=== PATIENT | male | born 1970 | race Caucasian/White ===

== ENCOUNTER 2017-01-06 11:38 | Emergency (ER) ==
[2017-01-06 12:22] LABS: MANUAL DIFF NEEDED? NO; URINE CULTURE NEEDED? NO; URINE MICRO REVIEW NEEDED? NO; URINE SOURCE CLEAN CATCH
[2017-01-06 12:29] LABS: BASO% 0.4 % (0.0-0.8); EOS# 0.64 X1000 (0.0-0.7); EOS% 6.2 % (0.0-10.0); HEMATOCRIT 41.7 % (42.0-52.0); HEMOGLOBIN 14.6 g/dL (14.0-18.0); IMM GRAN# 0.05 X1000 (0.0-0.04); IMM GRAN% 0.5 % (0.0-0.5); LYMPH# 3.15 X1000 (1.2-3.4); LYMPH% 30.7 % (20.5-51.1); MCH 32.7 PG (27-31); MCV 93.3 FL (81-99); MONO# 0.78 X1000 (0.11-0.59); MONO% 7.6 % (1.7-9.3); MPV 10.2 FL (7.4-10.4); NEUT% 54.6 % (42.2-75.2); PLT 270 X1000 (130-400); RBC 4.47 XMIL (4.7-6.1)
[2017-01-06 12:31] LABS: BILIRUBIN URINE NEGATIVE (NEGATIVE); BLOOD URINE NEGATIVE (NEGATIVE); COLOR YELLOW; GLUCOSE URINE NEGATIVE (NEGATIVE); LEUKOCYTES URINE NEGATIVE (NEGATIVE); NITRITE URINE NEGATIVE (NEGATIVE); PROTEIN URINE NEGATIVE (NEGATIVE); SP GRAVITY URINE 1.027; TURBIDITY URINE CLEAR (CLEAR); UROBILINOGEN URINE NORMAL (NORMAL)
[2017-01-06 12:32] LABS: UR EPITHELIAL CELLS <10 /HPF (<10); URINE BACTERIA NEGATIVE /HPF; URINE RBC <10 /HPF (<10); URINE WBC <10 /HPF (<10)
[2017-01-06 12:48] LABS: UR AMPHETAMINES QUAL NONE DETECTED (NONE DETECT); UR BARBITUATES QUAL NONE DETECTED (NONE DETECT); UR BENZODIAZEPIN QUAL NONE DETECTED (NONE DETECT); UR CANNABINOIDS QUAL PRESUMPTIVE POSITIVE (NONE DETECT); UR COCAINE QUAL NONE DETECTED (NONE DETECT); UR METHADONE QUAL NONE DETECTED (NONE DETECT); UR OPIATES QUAL NONE DETECTED (NONE DETECT); UR OXYCODONE QUAL PRESUMPTIVE POSITIVE (NONE DETECT); UR PCP QUAL NONE DETECTED (NONE DETECT)
[2017-01-06 12:53] LABS: AGAP 13; ALBUMIN 4.1 g/dL (3.5-5.0); ALKALINE PHOSPHATASE 93 U/L (32-122); BUN 16 mg/dL (8-22); CALCIUM 8.4 mg/dL (8.8-10.2); CHLORIDE 101 mmol/L (98-107); COSMO 281; GOT 14 U/L (10-34); GPT 26 U/L (10-44); POTASSIUM 4.2 mmol/L (3.5-5.1); SODIUM 140 mmol/L (136-145); TCO2 26 mmol/L (25-35); TOTAL BILIRUBIN 0.27 mg/dL (0.20-1.00); TOTAL PROTEIN 6.3 g/dL (6.3-8.3)
[2017-01-06 13:11] LABS: FREE T4 1.29 ng/dL (0.93-1.70)
--- NOTE | 2017-01-06 15:16 | ED EKG INTERP ---
EKG Interpretation - EKG Time of EKG reading by physician:: 12:02 EKG Read and Signed by:: Riky Dorantes EKG Interpretation (*Must complete 3 of following elements*): Normal Rate: 70 Rhythm: NSR with sinus arrhythmia Attestation - Scribe Verification/Attestation Scribe:: Constance Turner Acting as Scribe for:: Riky Dorantes Scribe documention review:: This chart was documented by a scribe and accurately reflects the service the provider performed and the decisions made by the provider.
--- NOTE | 2017-01-06 19:49 | PROVIDER DOCUMENTATION ---
HPI-Pediatrics - General Chief Complaint: Psych Stated Complaint: NEED EVAL. Time Seen by Provider: 01/06/17 11:49 Source: patient Allergies/Adverse Reactions: Patient Allergies Allergy/AdvReac Type Severity Reaction Status Date / Time tramadol AdvReac Intermediate SWELLING Verified 01/06/17 13:06 Home Medications: Home Medication List Medication Instructions Recorded Confirmed Last Taken Type Cyclobenzaprine [Flexeril] 10 mg PO TID #20 tablet 11/01/16 Unknown Rx Meloxicam [Mobic] 7.5 mg PO DAILY PRN PRN #15 tablet 11/01/16 Unknown Rx - History of Present Illness-Ped Nature of Presenting Problem: Pt is a 46 y/o M c chief complaint of feeling like people are following him, there are too many coincidences happening in his life, and anxiety. Pt has an extensive h/o schizophrenia and feels that this may be an exacerbation of his mental health disorder. He has been non-compliant with his meds and experimenting c recreational drug use. On arrival, pt is anxious but in minimal distress. Review of Systems - Pediatric - REVIEW OF SYSTEMS - PEDIATRIC Constitutional: reports: no symptoms reported. denies: chills, fever, fatique Eyes: reports: no symptoms reported. denies: blurred vision, double vision Head, Ears, Nose, Mouth & Throat: reports: no symptoms reported. denies: ear pain, nose pain, difficulty swallowing Cardiovascular: reports: no symptoms reported. denies: chest pain, exercise intolerance Respiratory: reports: no symptoms reported. denies: cough, shortness of breath Gastrointestinal: reports: no symptoms reported. denies: abdominal pain, nausea , vomiting Genitourinary: reports: no symptoms reported. denies: dysuria, discharge Musculoskeletal: reports: no symptoms reported. denies: bone pain, joint pain Integumentary: reports: no symptoms reported. denies: itching, jaundice Neurological: reports: no symptoms reported. denies: behavior problems, head injury Psychiatric: reports: see HPI, panic attacks. denies: anxiety, irritability Endocrine: reports: no symptoms reported. denies: cold intolerance, heat intolerance Hematologic/Lymphatic: reports: no symptoms reported. denies: blood clots, low blood count Allergic/Immunologic: reports: no symptoms reported. denies: allergic reactions , frequent infections All Other Systems: Reviewed and Negative Past History-Pediatric - PAST MEDICAL HISTORY-PEDIATRIC Major Childhood Illnesses: reports: denies history Other Conditions: reports: denies history - IMMUNIZATION STATUS Childhood Immunizations: See Nurse Assessment Flu Vaccine: See Nurse Assessment - FAMILY HISTORY Family History: reviewed, not pertinent
--- NOTE | 2017-01-06 19:54 | PROVIDER DOCUMENTATION ---
HPI-Psychological Disorder <Jeromy Rowland - Last Filed: 01/06/17 20:51> - General Source: patient <Shaheen Barlow - Last Filed: 01/06/17 20:57> - General Chief Complaint: Psych Stated Complaint: NEED EVAL. Time Seen by Provider: 01/06/17 11:49 Allergies/Adverse Reactions: Patient Allergies Allergy/AdvReac Type Severity Reaction Status Date / Time tramadol AdvReac Intermediate SWELLING Verified 01/06/17 13:06 Home Medications: Home Medication List Medication Instructions Recorded Confirmed Last Taken Type Cyclobenzaprine [Flexeril] 10 mg PO TID #20 tablet 11/01/16 Unknown Rx Meloxicam [Mobic] 7.5 mg PO DAILY PRN PRN #15 tablet 11/01/16 Unknown Rx - History of Present Illness-Psych Nature of Presenting Problem: Pt is a 46 y/o M c chief complaint of feeling like people are following him, there are too many coincidences happening in his life, and anxiety. Pt has an extensive h/o schizophrenia and feels that this may be an exacerbation of his mental health disorder. He has been non-compliant with his meds and experimenting c recreational drug use. On arrival, pt is anxious but in minimal distress. (Shaheen Barlow) Review of Systems - Adult - REVIEW OF SYSTEMS - ADULT Constitutional: reports: no symptoms reported. denies: chills, fatique Eyes: reports: no symptoms reported. denies: blurred vision, double vision Ears, Nose, Mouth & Throat: reports: no symptoms reported. denies: ear pain, nose pain Cardiovascular: reports: no symptoms reported. denies: chest pain, orthopnea Respiratory: reports: no symptoms reported. denies: cough, shortness of breath Gastrointestinal: reports: no symptoms reported. denies: abdominal pain, nausea Genitourinary: reports: no symptoms reported. denies: dysuria, hematuria Musculoskeletal: reports: no symptoms reported. denies: joint pain, joint swelling Integumentary: reports: no symptoms reported. denies: hives, itching, rash Neurological: reports: no symptoms reported. denies: numbness, paresthesia Psychiatric: reports: anxiety, alcohol/drug dependence, depression, emotional problems, panic attacks, other (paranoia). denies: suicidal thoughts Endocrine: reports: no symptoms reported. denies: cold intolerance, heat intolerance Hematologic/Lymphatic: reports: no symptoms reported. denies: blood clots, low blood count Allergic/Immunologic: reports: no symptoms reported. denies: allergic reactions , food allergy, frequent infections All Other Systems: Reviewed and Negative <Shaheen Barlow - Last Filed: 01/06/17 20:57> Past History - Adult - PAST MEDICAL HISTORY-ADULT Review of Records: reports: Old Records Reviewed, Nursing Assessment Review, Medications Reviewed, Social history reviewed & non-contributory. Major Childhood Illnesses: reports: denies history Cardiovascular: reports: denies history Respiratory: reports: denies history Gastrointestinal: reports: denies history Obstetrical/Gynecological: reports: denies history Genitourinary: reports: denies history Musculoskeletal: reports: chronic pain Neurological: reports: denies history Psychiatric: reports: anxiety, depression, psychiatric problems, schizophrenia Endocrine/Immune: reports: denies history Other Conditions: reports: denies history - IMMUNIZATION STATUS Childhood Immunizations: See Nurse Assessment Flu Vaccine: See Nurse Assessment - FAMILY HISTORY Family History: reviewed, not pertinent - SOCIAL HISTORY Smoking: cigarettes Provider spent 3-5 mins advising pt. on dangers of tobacco.: Discussed manners to quit use, and f/u contacts for add'l counseling. Substance Use: marijuana, opiates Alcohol Use Frequency: occasionally Living Situation: family <Shaheen Barlow - Last Filed: 01/06/17 20:57> Physical Exam-Psych Focus - Physical Exam-Psych Initial Vital Signs Reviewed: Yes Appearance: appropriate appearance, neat, alert, impaired insight (paranoia) Neurological: alert, normal mood/affect, agitated, anxious Behavior/Eye Contact/Speech: avoids eye contact, increased rate of speech, compulsive Thoughts/Hallucinations: delusions, obsessive, paranoid HENMT: normocephalic/atraumatic, moist mucous membranes, normal ENT inspection Neck: non-tender Respiratory: chest non-tender, lungs clear, normal breath sounds Cardiovascular: normal peripheral pulses, regular rate, rhythm, no edema Abdominal Exam: normal bowel sounds, non tender, soft Lymphatic: no adenopathy Back Exam: normal inspection, no CVA tenderness, no vertebral tenderness Extremity: normal range of motion, non-tender, normal gait Integumentary: normal color, normal turgor, warm/dry <Shaheen Barlow - Last Filed: 01/06/17 20:57> Progress <Jeromy Rowland - Last Filed: 01/06/17 20:51> <Shaheen Barlow - Last Filed: 01/06/17 20:57> - PLAN OF CARE/RESULTS Progress/Plan/Lab Results: 2050: Pt is signing a No-Harm contract Vital Signs - 24 hr 01/06/17 01/06/17 01/06/17 11:45 16:26 18:26 Temperature 98 F 97.9 F 98.5 F Pulse Rate 78 56 L 64 Respiratory 18 18 18 Rate Blood Pressure 155/85 159/90 151/82 O2 Sat by Pulse 99 99 100 Oximetry 01/06/17 20:35 Temperature Pulse Rate 63 Respiratory 18 Rate Blood Pressure 180/102 O2 Sat by Pulse 97 Oximetry Orders Category Date Time Status Regular Diet Diet 01/06/17 15:05 Active ALCOHOL BLOOD Stat Lab 01/06/17 11:59 Completed CBC WITH ELECTRONIC DIFF [HEME] Stat Lab 01/06/17 11:59 Completed COMPREHENSIVE METABOLIC PANEL [CHEM] Stat Lab 01/06/17 11:59 Completed FREE T4 Stat Lab 01/06/17 11:59 Completed TSH Stat Lab 01/06/17 11:59 Completed URINALYSIS W/POSS RFLX CULT [URINALYSIS] Stat Lab 01/06/17 11:59 Completed URINE DRUG SCREEN Stat Lab 01/06/17 11:59 Completed VITAMIN B12 Stat Lab 01/06/17 11:59 Completed Acetaminophen [Tylenol] Med 01/06/17 20:25 Discontinued 1,000 mg PO NOW ONE Laboratory Tests 01/06/17 01/06/17 01/06/17 11:59 11:59 11:59 WBC 10.27 RBC 4.47 L Hgb 14.6 Hct 41.7 L MCV 93.3 MCH 32.7 H MCHC 35.0 RDW Std Deviation 13.2 Plt Count 270 MPV 10.2 Immature Gran % (Auto) 0.5 Neut % (Auto) 54.6 Lymph % (Auto) 30.7 [place] % (Auto) 7.6 Eos % (Auto) 6.2 Baso % (Auto) 0.4 Immature Gran # (Auto) 0.05 H Neut # (Auto) 5.61 Lymph # (Auto) 3.15 [place] # (Auto) 0.78 H Eos # (Auto) 0.64 Baso # (Auto) 0.04 Sodium 140 Potassium 4.2 Chloride 101 Carbon Dioxide 26 Anion Gap 13 BUN 16 Creatinine 0.8 Estimated GFR/1.73 m2 > 60 BUN/Creatinine Ratio 20 Glucose 108 H Calculated Osmolality 281 Calcium 8.4 L Total Bilirubin 0.27 AST 14 ALT 26 Alkaline Phosphatase 93 Total Protein 6.3 Albumin 4.1 Globulin 2.2 Albumin/Globulin Ratio 1.9 Vitamin B12 TSH Free T4 Urine Source Urine Color Urine Turbidity Urine pH Ur Specific [place] Urine Protein Ur Glucose (Stick) Ur Ketones (Stick) Urine Blood Urine Nitrite Urine Bilirubin Urobilinogen Dipstick Urine Leukocytes Urine WBC (Auto) Urine RBC (Auto) U Epithel Cells (Auto) Urine Bacteria (Auto) Urine Opiates Screen Ur Oxycodone Screen Ur Methadone, Qual Ur Barbiturates Screen Ur Phencyclidine Scrn Ur Amphetamines Screen U Benzodiazepines Scrn Urine Cocaine Screen U Cannabinoids Screen Plasma/Serum Ethyl Alc 01/06/17 01/06/17 01/06/17 11:59 11:59 11:59 WBC RBC Hgb Hct MCV MCH MCHC RDW Std Deviation Plt Count MPV Immature Gran % (Auto) Neut % (Auto) Lymph % (Auto) [place] % (Auto) Eos % (Auto) Baso % (Auto) Immature Gran # (Auto) Neut # (Auto) Lymph # (Auto) [place] # (Auto) Eos # (Auto) Baso # (Auto) Sodium Potassium Chloride Carbon Dioxide Anion Gap BUN Creatinine Estimated GFR/1.73 m2 BUN/Creatinine Ratio Glucose Calculated Osmolality Calcium Total Bilirubin AST ALT Alkaline Phosphatase Total Protein Albumin Globulin Albumin/Globulin Ratio Vitamin B12 270 TSH 2.30 Free T4 1.29 Urine Source CLEAN CATCH Urine Color YELLOW Urine Turbidity CLEAR Urine pH 7.0 Ur Specific [place] 1.027 Urine Protein NEGATIVE Ur Glucose (Stick) NEGATIVE Ur Ketones (Stick) NEGATIVE Urine Blood NEGATIVE Urine Nitrite NEGATIVE Urine Bilirubin NEGATIVE Urobilinogen Dipstick NORMAL Urine Leukocytes NEGATIVE Urine WBC (Auto) <10 Urine RBC (Auto) <10 U Epithel Cells (Auto) <10 Urine Bacteria (Auto) NEGATIVE Urine Opiates Screen NONE DETECTED Ur Oxycodone Screen PRESUMPTIVE POSITIVE A Ur Methadone, Qual NONE DETECTED Ur Barbiturates Screen NONE DETECTED Ur Phencyclidine Scrn NONE DETECTED Ur Amphetamines Screen NONE DETECTED U Benzodiazepines Scrn NONE DETECTED Urine Cocaine Screen NONE DETECTED U Cannabinoids Screen PRESUMPTIVE POSITIVE A Plasma/Serum Ethyl Alc (Jeromy Rowland) Orders Category Date Time Status Regular Diet Diet 01/06/17 15:05 Active ALCOHOL BLOOD Stat Lab 01/06/17 11:59 Completed CBC WITH ELECTRONIC DIFF [HEME] Stat Lab 01/06/17 11:59 Completed COMPREHENSIVE METABOLIC PANEL [CHEM] Stat Lab 01/06/17 11:59 Completed FREE T4 Stat Lab 01/06/17 11:59 Completed TSH Stat Lab 01/06/17 11:59 Completed URINALYSIS W/POSS RFLX CULT [URINALYSIS] Stat Lab 01/06/17 11:59 Completed URINE DRUG SCREEN Stat Lab 01/06/17 11:59 Completed VITAMIN B12 Stat Lab 01/06/17 11:59 Completed Laboratory Tests 01/06/17 01/06/17 01/06/17 11:59 11:59 11:59 WBC 10.27 RBC 4.47 L Hgb 14.6 Hct 41.7 L MCV 93.3 MCH 32.7 H MCHC 35.0 RDW Std Deviation 13.2 Plt Count 270 MPV 10.2 Immature Gran % (Auto) 0.5 Neut % (Auto) 54.6 Lymph % (Auto) 30.7 [place] % (Auto) 7.6 Eos % (Auto) 6.2 Baso % (Auto) 0.4 Immature Gran # (Auto) 0.05 H Neut # (Auto) 5.61 Lymph # (Auto) 3.15 [place] # (Auto) 0.78 H Eos # (Auto) 0.64 Baso # (Auto) 0.04 Sodium 140 Potassium 4.2 Chloride 101 Carbon Dioxide 26 Anion Gap 13 BUN 16 Creatinine 0.8 Estimated GFR/1.73 m2 > 60 BUN/Creatinine Ratio 20 Glucose 108 H Calculated Osmolality 281 Calcium 8.4 L Total Bilirubin 0.27 AST 14 ALT 26 Alkaline Phosphatase 93 Total Protein 6.3 Albumin 4.1 Globulin 2.2 Albumin/Globulin Ratio 1.9 Vitamin B12 TSH Free T4 Urine Source Urine Color Urine Turbidity Urine pH Ur Specific [place] Urine Protein Ur Glucose (Stick) Ur Ketones (Stick) Urine Blood Urine Nitrite Urine Bilirubin Urobilinogen Dipstick Urine Leukocytes Urine WBC (Auto) Urine RBC (Auto) U Epithel Cells (Auto) Urine Bacteria (Auto) Urine Opiates Screen Ur Oxycodone Screen Ur Methadone, Qual Ur Barbiturates Screen Ur Phencyclidine Scrn Ur Amphetamines Screen U Benzodiazepines Scrn Urine Cocaine Screen U Cannabinoids Screen Plasma/Serum Ethyl Alc 01/06/17 01/06/17 01/06/17 11:59 11:59 11:59 WBC RBC Hgb Hct MCV MCH MCHC RDW Std Deviation Plt Count MPV Immature Gran % (Auto) Neut % (Auto) Lymph % (Auto) [place] % (Auto) Eos % (Auto) Baso % (Auto) Immature Gran # (Auto) Neut # (Auto) Lymph # (Auto) [place] # (Auto) Eos # (Auto) Baso # (Auto) Sodium Potassium Chloride Carbon Dioxide Anion Gap BUN Creatinine Estimated GFR/1.73 m2 BUN/Creatinine Ratio Glucose Calculated Osmolality Calcium Total Bilirubin AST ALT Alkaline Phosphatase Total Protein Albumin Globulin Albumin/Globulin Ratio Vitamin B12 270 TSH 2.30 Free T4 1.29 Urine Source CLEAN CATCH Urine Color YELLOW Urine Turbidity CLEAR Urine pH 7.0 Ur Specific [place] 1.027 Urine Protein NEGATIVE Ur Glucose (Stick) NEGATIVE Ur Ketones (Stick) NEGATIVE Urine Blood NEGATIVE Urine Nitrite NEGATIVE Urine Bilirubin NEGATIVE Urobilinogen Dipstick NORMAL Urine Leukocytes NEGATIVE Urine WBC (Auto) <10 Urine RBC (Auto) <10 U Epithel Cells (Auto) <10 Urine Bacteria (Auto) NEGATIVE Urine Opiates Screen NONE DETECTED Ur Oxycodone Screen PRESUMPTIVE POSITIVE A Ur Methadone, Qual NONE DETECTED Ur Barbiturates Screen NONE DETECTED Ur Phencyclidine Scrn NONE DETECTED Ur Amphetamines Screen NONE DETECTED U Benzodiazepines Scrn NONE DETECTED Urine Cocaine Screen NONE DETECTED U Cannabinoids Screen PRESUMPTIVE POSITIVE A Plasma/Serum Ethyl Alc Vital Signs - 24 hr 01/06/17 01/06/17 01/06/17 11:45 16:26 18:26 Temperature 98 F 97.9 F 98.5 F Pulse Rate 78 56 L 64 Respiratory 18 18 18 Rate Blood Pressure 155/85 159/90 151/82 O2 Sat by Pulse 99 99 100 Oximetry PT SPOKE C [facility] [place] PSYCH SCREENER AND IT WAS DETERMINED HE WAS STABLE TO D/ C HOME AND HE WILL F/U C OUT-PT PSYCH. (Shaheen Barlow) Departure - Departure Time of Disposition Order: 20:52 Certified Medical Emergency: Emergent <Jeromy Rowland - Last Filed: 01/06/17 20:51> - Departure Time of Disposition Order: 20:55 Certified Medical Emergency: Emergent <Shaheen Barlow - Last Filed: 01/06/17 20:57> - Departure DIAGNOSIS: Anxiety and depression Disposition: HOME 01 Condition: Stable Additional Instructions: Follow up Brian Mcintosh as instructed to do during your meeting with the psych screener. ED Follow Up Instructions: You have been treated by a care provider in the Emergency Department. These instructions are being provided to you so you can have an understanding of how to care for yourself upon discharge. Upon discharge from the Emergency Department, you are responsible for making arrangements for follow-up care by a physician of your choice. Take all prescribed medications as directed. Return to the Emergency Department immediately for any new or worsening symptoms. You may call the Physician Referral phone number at [phone] to obtain a list of Physicians who are taking new patients. Referrals: Thong Choi [Primary Care Provider] - Instructions: Panic Attacks, [id number], Depression, Adult, [id number] Attestation - Scribe Verification/Attestation Scribe:: Jeromy Rowland Acting as Scribe for:: Joe Urrutia Scribe documention review:: This chart was documented by a scribe and accurately reflects the service the provider performed and the decisions made by the provider. <Jeromy Rowland - Last Filed: 01/06/17 20:51> - Physician/ MICKEY Attestation Patient care was provided by Advanced Practice Provider:: Yes Advanced Practice Provider:: Shaheen Barlow Advanced Practice Provider documentation review:: The Mid-level provider documentation, treatment plan and medical decision making was reviewed by the physician who agrees with all treatment and medical decision making by the P. <Shaheen Barlow - Last Filed: 01/06/17 20:57> Physician Attestation
[2017-01-06] MEDS ORDERED: TYLENOL PO ONE (20:25)
[2017-01-06 20:35] VITALS: BP 180/102
--- NOTE | 2017-01-07 06:14 | EKG Report ---
Test Performed on : 01/06/2017 12:02:57 PM Test Reason : No Order in [employer] Blood Pressure : / mmHG Vent. Rate : 070 BPM Atrial Rate : 070 BPM P-R Int : 146 ms QRS Dur : 090 ms QT Int : 380 ms P-R-T Axes : 075 079 046 degrees QTc Int : 410 ms Normal sinus rhythm. with sinus arrhythmia. Normal ECG When compared with ECG of 14-APR-2013 00:04, Nonspecific T wave abnormality has replaced inverted T waves in Inferior leads QT has shortened Unconfirmed Result
== END 2017-01-06 21:08 | disposition home or self-care (01) ==
LOC: EDBD → ED 11:38
DX: F41.9 Anxiety disorder, unspecified (principal); F32.9 Major depressive disorder, single episode, unspecified; F22 Delusional disorders; G89.29 Other chronic pain; F17.210 Nicotine dependence, cigarettes, uncomplicated; Z71.6 Tobacco abuse counseling
CPT/HCPCS: 80053; 81001; 82607; 84439; 84443; 85025; 93005; G0480; 80320; 80324; 80345; 80346; 80349; 80353; 80358; 80361; 80365; 83992